=== PATIENT | male | born 2000 | race Caucasian/White ===

== ENCOUNTER 2023-05-04 11:32 | Emergency (ER) | payer BC, SELFPAY ==
[2023-05-04 11:52] VITALS: BP 156/97; PULSE 104; RESP 18; TEMP 37; O2SAT 100
--- NOTE | 2023-05-04 12:33 | ED.URI ---
HPI - URI/Sore Throat General Chief Complaint: Upper Respiratory Infection Stated Complaint: congestion/nausea Time Seen by Provider: 05/04/23 12:24 Source: patient, RN notes reviewed and old records reviewed Mode of arrival: ambulatory Limitations: no limitations History of Present Illness HPI Narrative: 22-year-old male to [facility] With complaint of nausea, vomiting, cough that started yesterday. Patient denies fever, chest pain, shortness of breath. Patient denies allergies Or pertinent medical history. Patient able to tolerate fluids by mouth Related Data Home Medications Medication Instructions Recorded Confirmed No Home Medications 05/04/23 05/04/23 Allergies Allergy/AdvReac Type Severity Reaction Status Date / Time No Known Allergies Allergy Unverified 04/01/14 19:46 Review of Systems Review of Systems: All systems reviewed & are unremarkable except as noted in HPI and below Constitutional: Constitutional: Reports as per HPI, Denies body ache(s) and Denies chills Eyes: Eyes: Reports no additional eye complaints ENT: Reports as per HPI and Denies sore throat Cardiovascular: Cardiovascular: Reports no additional cardiovascular complaints, Denies chest pain and Denies dyspnea Respiratory: Respiratory: Reports no additional respiratory complaints, Reports cough and Denies dyspnea Gastrointestinal: Gastrointestinal: Denies abdominal pain, Denies diarrhea, Reports nausea and Reports vomiting Musculoskeletal: Musculoskeletal: Reports no additional musculoskeletal complaints Neurologic: Reports system reviewed and no additional complaints, except as documented Psychiatric: Psychiatric: Reports no additional psychiatric complaints PMFSH Comments At the time of my signature, I reviewed and agree with the nursing past medical, surgical, social, and family history. There is no relevant family history pertinent to the patient complaint. Exam Const: General: cooperative, healthy appearing, comfortable, no acute distress, alert and well nourished Nutritional Appearance: well nourished Orientation/consciousness: patient oriented x3 Limitations: no limitations HENMT: Head: normal to inspection Ears: external ears normal Face/Nose/Sinus: Normal external nose present, Normal nares present, normal facial exam, No erythema and No edema Face and sinus: normal facial exam, no erythema and no edema Mouth: Yes Normal oral and palatal mucosa present Throat: posterior oropharynx abnormal erythema; no edema and postnasal drainage Eyes: General: appearance normal, both eyes and all related structures Neck: Neck: normal visual inspection, full ROM and no meningeal signs Lymphatic: no lymphadenopathy noted and no lymphedema noted Chest: Chest palpation & inspection: normal inspection of the chest Resp: Effort & Inspection: normal respiratory effort and able to speak in complete sentences Auscultation: clear to auscultation bilaterally Cardio: Jugular venous distension: no JVD Rate: regular rate Rhythm: regular rhythm Back/Spine/Pelvis: Cervical Spine: cervical ROM normal Skin: General skin exam: normal color, no rashes or lesions noted and turgor normal Neuro: General: patient oriented x3, gait normal, moves all extremities and no meningeal signs Speech: normal speech Gait exam (Neuro): Normal gait present Extrem: General: normal to inspection, full ROM and capillary refill normal Psych: Appearance: grossly normal and well kempt Course Course Emergency Course: Some parts of this dictation were generated by voice recognition software and may contain typographical and/or grammatical inaccuracies. Level of Care: Express Care Visit Vital Signs Vital signs: Vital Signs Temperature 37.0 C 05/04/23 11:52 Pulse Rate 104 H 05/04/23 11:52 Respiratory Rate 18 05/04/23 11:52 Blood Pressure 156/97 H 05/04/23 11:52 Pulse Oximetry 100 05/04/23 11:52 Oxygen Delivery Room Air
== END 2023-05-04 12:35 | disposition home or self-care (01) ==
PROVIDERS: Emergency Provider Nurse Practitioner Family
DX: K52.9 Noninfective gastroenteritis and colitis, unspecified (principal); J06.9 Acute upper respiratory infection, unspecified
CPT/HCPCS: 99202; G0463

== ENCOUNTER 2023-06-08 13:54 | Emergency (ER) | payer BC, SELFPAY ==
--- NOTE | 2023-06-08 14:13 | ED.GENADULT ---
HPI - General Adult General Chief complaint: Nausea/Vomiting/Diarrhea Stated complaint: nausea/hernia Time Seen by Provider: 06/08/23 14:13 Source: patient, RN notes reviewed and old records reviewed Mode of arrival: ambulatory Limitations: no limitations History of Present Illness HPI narrative: 22-year-old male to Express Care for complaint nausea and vomiting since yesterday. Patient states recent increase in stress at home. Patient endorses history of hiatal hernia. patient denies pertinent medical history , allergies, fever, abdominal pain, diarrhea. Patient able to tolerate fluids by mouth. No acute distress in exam room Related Data Home Medications Medication Instructions Recorded Confirmed No Home Medications 05/04/23 06/08/23 Allergies Allergy/AdvReac Type Severity Reaction Status Date / Time No Known Allergies Allergy Verified 06/08/23 14:11 Review of Systems Review of Systems: All systems reviewed & are unremarkable except as noted in HPI and below Constitutional: Constitutional: Reports as per HPI, Denies body ache(s), Denies chills and Denies fever(s) Eyes: Eyes: Reports no additional eye complaints ENT: Reports system reviewed and no additional complaints, except as documented Cardiovascular: Cardiovascular: Reports no additional cardiovascular complaints, Denies chest pain and Denies dyspnea Respiratory: Respiratory: Reports no additional respiratory complaints, Denies cough and Denies dyspnea Gastrointestinal: Gastrointestinal: Reports nausea and Reports vomiting Musculoskeletal: Musculoskeletal: Reports no additional musculoskeletal complaints Neurologic: Reports system reviewed and no additional complaints, except as documented Psychiatric: Psychiatric: Reports no additional psychiatric complaints PMFSH Comments At the time of my signature, I reviewed and agree with the nursing past medical, surgical, social, and family history. There is no relevant family history pertinent to the patient complaint. Exam Const: General: cooperative, healthy appearing, comfortable, no acute distress, alert and well nourished Nutritional Appearance: well nourished Orientation/consciousness: patient oriented x3 Limitations: no limitations HENMT: Head: normal to inspection Ears: external ears normal Face/Nose/Sinus: Normal external nose present, Normal nares present, normal facial exam, No erythema and No edema Face and sinus: normal facial exam, no erythema and no edema Mouth: Yes Normal oral and palatal mucosa present Eyes: General: appearance normal, both eyes and all related structures Neck: Neck: normal visual inspection, full ROM and no meningeal signs Lymphatic: no lymphadenopathy noted and no lymphedema noted Chest: Chest palpation & inspection: normal inspection of the chest Resp: Effort & Inspection: normal respiratory effort and able to speak in complete sentences Auscultation: clear to auscultation bilaterally Cardio: Jugular venous distension: no JVD Rate: regular rate Rhythm: regular rhythm Back/Spine/Pelvis: Cervical Spine: cervical ROM normal Skin: General skin exam: normal color, no rashes or lesions noted and turgor normal Neuro: General: patient oriented x3, gait normal, moves all extremities and no meningeal signs Speech: normal speech Gait exam (Neuro): Normal gait present Extrem: General: normal to inspection, full ROM and capillary refill normal Psych: Appearance: grossly normal and well kempt Course Course Emergency Course: Some parts of this dictation were generated by voice recognition software and may contain typographical and/or grammatical inaccuracies. Level of Care: Express Care Visit Vital Signs Vital signs: Vital Signs Temperature 36.7 C 06/08/23 14:41 Pulse Rate 111 H 06/08/23 14:41 Respiratory Rate 18 06/08/23 14:41 Blood Pressure 140/78 06/08/23 14:41 Pulse Oximetry 99 06/08/23 14:41 Temperature 36.7 C
[2023-06-08 14:41] VITALS: BP 140/78; PULSE 111; RESP 18; TEMP 36.7; O2SAT 99
== END 2023-06-08 14:15 | disposition home or self-care (01) ==
PROVIDERS: Emergency Provider Nurse Practitioner Family
DX: K52.9 Noninfective gastroenteritis and colitis, unspecified (principal)
CPT/HCPCS: 99211; G0463

== ENCOUNTER 2024-02-29 17:05 | Emergency (ER) | payer OTHER, SELFPAY ==
[2024-02-29 17:11] VITALS: BP 124/62; PULSE 87; RESP 20; TEMP 36.7; O2SAT 98
--- NOTE | 2024-02-29 17:36 | ED_ITS ---
HPI - General Adult General Chief complaint: Nausea/Vomiting/Diarrhea Stated complaint: needs work note Time Seen by Provider: 02/29/24 17:30 Source: patient and RN notes reviewed Mode of arrival: ambulatory Limitations: no limitations History of Present Illness HPI narrative: 23-year-old male presents to [facility] with complaints of 2 day history of nausea and dizziness and states that he had to call off work and needs note to be able to go back to work tomorrow.. Patient reports no sore throat or any ear pain denies any vomiting or diarrhea or any known fevers or body aches, Patient reports that son has been ill but no one else in household. Patient reports no headache or any visual disturbances. MD complaint: nausea and dizziness. Onset (ago): day(s) (2) Severity: mild Treatments prior to arrival: none Related Data Home Medications ?Medication ?Instructions ?Recorded ?Confirmed ?Last Taken ?Type No Home Medications 05/04/23 06/08/23 Unknown History Allergies Allergy/AdvReac Type Severity Reaction Status Date / Time No Known Allergies Allergy Verified 02/29/24 17:15 Review of Systems Review of Systems: CONSTITUTIONAL: Denies malaise, chills, sweats, or fever. EYES: Denies visual changes, redness, or discharge. ENT: Reports rhinorrhea, congestion, no sinus pain, no otalgia and no sore throat. CARDIOVASCULAR: Denies chest pain, palpitations, or edema. RESPIRATORY: Reports no cough.? Denies dyspnea. GASTROINTESTINAL: Denies abdominal pain,episodes of nausea, no vomiting, no iarrhea SKIN: Denies rash or itching. MUSCULOSKELETAL: Denies myalgia. NEUROLOGIC: Denies headache.reports episodes of dizziness 2 days in mornings reports no present dizziness All systems reviewed & are unremarkable except as noted in HPI and below PMFSH Past Medical History Medical History ADD (attention deficit disorder) Social History Social History (Updated 03/01/24 @ 13:41 by Franci Nath NP) Smoking status: Never smoker Alcohol intake: current Alcohol use details: social Substance use type: does not use Gender identity (if verbalized by the patient): Male Comments At time of signature, agree with nursing past medical, surgical, social and family history. There is no relevant family history pertinent to the presenting complaint Exam Narrative: GENERAL: Well-appearing, well-nourished, and in no acute distress. HEAD: Normocephalic EYES: PERRLA, conjunctivae clear ENT: Nares clear, turbinates edematous and erythematous, clear discharge. Mucous membranes moist. TM pearly iyer with dull light reflex bilaterally; no tragal tenderness. Oropharynx erythematous without lesions. Tonsils not enlarged and without exudate, no drooling, no hoarseness, no trismus, uvula midline. NECK: Supple. No lymphadenopathy CHEST: Clear to auscultation, breath sounds equal. No wheezing, rhonchi, rales, or stridor. No respiratory distress, speaks in full sentences.no cough noted SAO2 98% on room air HEART: Regular rate and rhythm. No murmur heard. SKIN: Warm, dry, no rash. NEURO: Alert and oriented x3. denies any headache and denies any present dizziness. PSYCH: Normal mood and affect Course Course Emergency Course: Patient is aware of diagnosis, understands and agrees to treatment plan.? Anticipatory guidance given.? Patient agrees to follow-up as directed and is aware of reasons to seek care at the emergency department. Portions of this record may have been created with voice recognition software Level of Care: Express Care Visit Vital Signs Vital signs: Vital Signs Temperature 36.7 C 02/29/24 17:11 Pulse Rate 87 02/29/24 17:11 Respiratory Rate 02/29/24 17:11 Blood Pressure 124/62 02/29/24 17:11 Pulse Oximetry 98 02/29/24 17:11 Oxygen Delivery Room Air 02/29/24 17:11 Temperature 36.7 C 02/29/24 17:11 Pulse Rate 87 02/29/24 17:11 Respiratory Rate 20 02/29/24 17:11 Blood Pressure 124/62 02/29/24 17:11 Pulse Oximetry 98 02/29/24 17:11 Oxygen Delivery Room Air 02/29/24 17:11 Reviewed Medical Decision Making Differential Diagnosis Differential Diagnosis: URI, nausea, dizziness, viral infection, viral syndrome. influenza, COVID Medical Records Medical records reviewed: Yes I reviewed the external patient's medical records. Vital Signs Vital Signs: Vital Signs Temperature 36.7 C 02/29/24 17:11 Pulse Rate 87 02/29/24 17:11 Respiratory Rate 20 02/29/24 17:11 Blood Pressure 124/62 02/29/24 17:11 Pulse Oximetry 98 02/29/24 17:11 Oxygen Delivery Room Air 02/29/24 17:11 Temperature 36.7 C 02/29/24 17:11 Pulse Rate 87 02/29/24 17:11 Respiratory Rate 20 02/29/24 17:11 Blood Pressure 124/62 02/29/24 17:11 Pulse Oximetry 98 02/29/24 17:11 Oxygen Delivery Room Air 02/29/24 17:11 reviewed Lab Data Lab results reviewed: Yes I reviewed the patient's lab results. Lab results narrative: Influenza A negative, Influenza B negative, COVID negative Labs: Lab Results 02/29/24 Range/Units 17:35 POC Influenza A Ag Negative (Negative) POC Influenza B Ag Negative (Negative) POC SARS CoV-2 Ag Negative (Negative) reviewed Critical Care Time Critical Care Time Critical Care Time: No Discharge Plan Discharge Clinical Impression: Viral syndrome Patient Disposition: Home, Self-Care Condition: Stable Instructions: Viral Syndrome (ED) Additional Instructions: Increase fluids especially juices and water [id number] cough and cold medicine of your choice for your symptoms Zyrtec Claritin or Kaylene daily Maintain light diet avoid spicy foods caffeine Tylenol or ibuprofen for any fever pain heat to the face 20-30 minutes 4-6 times a day for pain Salt water gargles, throat lozenges or throat sprays as desired If your symptoms persist, change or worsen significantly before you can contact your personal physician then please, without delay, go to the emergency department for further evaluation. Follow-up with PCP in 7-10 days or sooner if needed Patient Language: [place] Irish Prescriptions: No Action No Home Medications Follow-up/Referrals: PHYSICIAN,LEARNING TECHNOLOGIST [Primary Care Provider] - Stand Alone Forms: Work/School Release IP Time of Disposition: 17:54 Quality Alexa Coma Scale Eyes: Open Verbal: Oriented and Alert Motor: Follows Commands Alexa Coma Total Score: 15
[2024-02-29 17:54] LABS: EDCOVIDSCREEN Negative (Negative); EDINFLUASCREEN Negative (Negative); EDINFLUBSCREEN Negative (Negative)
--- OUTSIDE RECORDS SUMMARY | 2024-03-02 20:09 | XMS_ITS | Referral Summary ---
Author Organization [facility] [place] [address] Address [address] [place] [address] Care Team Providers Care Automotive Service Cashier Name Role Phone Tabatha Ballesteros MD Primary Care Provider [phone] Allergies No known active allergies Medications pediatric multivitamin tablet,chewableIndi cations:Vitamin Deficiency Prevention Take 1 tablet by mouth. 0 Active ondansetron ODT (ZOFRAN-ODT) 4 mg disintegrating tablet Dissolve 1 tablet oral every 4 hours as needed for nausea or vomiting. 15 tablet 8 Active Active Problems No known active problems Social History Tobacco Use Types Packs/Day Years Used Date Smoking Tobacco: Never Smokeless Tobacco: Never Alcohol Use Standard Drinks/Week Comments No 0 (1 standard drink = 0.6 oz pur e alcohol) Personal Safety Answer Date Recorded Getting School Help Needed Not on file 04/23 Sex and Gender Information Value Date Recorded Sex Assigned at Not on file Legal Sex Male 7:37 PM [employer] Gender Identity Not on file Sexual Orientation Not on file Last Filed Vital Signs Vital Sign Reading Time Taken Comments Blood Pressure 149/66 04/11/2017 12:15 AM [employer] Pulse 84 04/10/2017 10:46 PM [employer]GR[employer] Temperature 36.9 ??C (98.4 ??F) 04/10/2017 10:[address] Respiratory Rate 18 04/10/2017 10:46 PM [employer]GR[employer] Oxygen Saturation 97% 04/11/2017 12:15 AM HEAD OF GEOGRAPHY Inhaled Oxygen Concentration - - Weight 86.2 kg (190 lb) 04/10/2017 10:44 PM [employer] OF GEOGRAP[employer] Height 182.9 cm (6') 04/10/2017 10:44 PM [employer]OGRAP[employer] Body Mass Index 25.77 04/10/2017 10:44 PM HEAD OF GEOGRAPHY Plan of Treatment Not on file Insurance [facility] [employer] HMO/PPO Address: [place] [address] Care Teams Automotive Service Cashier Relationship Specialty Start Date End Date Tabatha Ballesteros MD PCP - General Pediatrics 03/02/17
--- OUTSIDE RECORDS SUMMARY | 2024-03-02 20:09 | XMS_ITS | Patient Health Summary ---
Author Organization [facility] Address [address] [place] [address] Care Team Providers Care Mobile Phone Salesperson Name Role Phone Tabatha Ballesteros MD Primary Care Provider [phone] Note from [facility],non-owned Affiliates and Associated Physician Practices is amultiple site organization consisting of ambulatory clinics and hospital sitesin [place], [place], [place] and [place]. This disclosure is being madepursuant to the Care Everywhere program and may not contain all information available regarding this patient. Last updated 17.[facility] Allergies No known active allergies Medications * Be aware that medications may not be up to date on this document. Alwaysverify current medications with the patient. * Pediatric Wvciheaq-Stghzkhx-B (KIDS GUMMY BEAR VITAMINS PO)(Started 09/27/2009) Take 1 Tab by mouth daily. Social History Tobacco Use Types Packs/Day Years Used Date Smoking Tobacco: Never Alcohol Use Standard Drinks/Week Comments No 0 (1 standard drink = 0.6 oz pur e alcohol) Sex and Gender Information Value Date Recorded Sex Assigned at Not on file Gender Identity Not on file Sexual Orientation Not on file Last Filed Vital Signs Vital Sign Reading Time Taken Comments Blood Pressure 120/68 09/30/2009 9:36 AM CDT Pulse 80 09/30/2009 9:36 AM CDT Temperature 36.6 ??C (97.8 ??F) 09/30/2009 9:36 AM CD T Respiratory Rate 22 09/30/2009 9:36 AM CDT Oxygen Saturation 100% 09/30/2009 8:28 AM CDT Inhaled Oxygen Concentration - - Weight 34.1 kg (75 lb 1.3 oz) 09/30/2009 6:10 AM CDT Height 144 cm (4' 8.69 ) 09/30/2009 6:10 AM CDT Body Mass Index 16.42 09/30/2009 6:10 AM CDT Care Teams Mobile Phone Salesperson Relationship Specialty Start Date End Date Tabatha Ballesteros MD [address] [place] [address] [address] PCP - General 09/11/09
--- OUTSIDE RECORDS SUMMARY | 2024-03-02 20:09 | XMS_ITS | Data Portability ---
Author Organization [place] [facility] [employer], Main Office Address [address] [place] [address] Assessment No assessment recorded. Plan of Treatment Reminders Order Date Submit Date Provider Last Modified By Organization Details Last Modified Time Details Appointments None recorded. Lab lipid panel, serum [address] (Lab), [address] [place], [address], 3 09:10:40 CMP, serum or plasma [address] (Lab), [address] [place], [address], 3 09:10:40 CK (creatine kinase), total, serum [address] (Lab), [address] [place], [address], 3 09:10:40 TSH, serum or plasma [address] (Lab), [address] [place], [address], 3 09:10:41 vitamin D3, 25-hydroxy , serum [address] (Lab), [address] [place], [address], 3 09:10:40 vitamin B12 + folate, serum or blood 2022 023 [facility] (Lab), [address] [place], [address], 3 09:10:40 magnesium, serum or plasma [address] (Lab), [address] [place], [address], 3 09:10:40 glycohemog lobin, total, blood [address] (Lab), [address] [place], [address], 09:10:41 Referral None recorded. Procedures None recorded. Surgeries None recorded. Imaging None recorded. Medication Orders docusate sodium 100 mg capsule 2022 023 [place] [facility] [employer] #[id number], [address], [place], [place], [id number], 3 16:24:32 magnesium citrate oral solution 2022 023 [place] [email or web address] #[id number], [address], [place], [place], [id number], 3 16:24:31 Patient TargetsNo targets recorded. Patient InstructionsNo instructions recorded. Reason for Referral None Reported. Problems Name Problem SNOMED Code Status Onset Date Resolution Date Notes Provider Name and Address Organization Details Recorded Time Constipation 02552958 Active 2022 [facility] [address], [place], [address], [facility] 3 16:19:56 Hyperlipidemia screening Active 2022 LC [facility] [email or web address], [place], [address], [facility] 3 16:27:15 Family history of diabetes mellitus 698088395 Active 2022 LC Oates [address], [place], [address], [facility] [employer] [facility] 3 16:27:33 At increased risk of nutritional deficit 813874245 Active 2022 LC O[facility] [address], [place], [address], [facility] [employer] [facility] 3 16:28:03 Problem Notes None recorded. Procedures Surgical History Date Name Laterality Status Provider Name and Address Organization Details Recorded Time Circumcision completed Deepika Banks MA [facility] [employer] [facility] 11/02/2022 16:12:34 removal of hoda completed Deepika Banks MA [facility] [employer] [facility] 11/02/2022 16:13:11 Imaging Results None recorded. Procedure Notes None recorded. Medical Equipment None Reported. Allergies No known drug allergies Medications Name Sig Start Date Stop Date Status Note LastModified by Organization Details LastModified Time pantoprazole 40 mg tablet,delay ed release TAKE 1 TABLET BY MOUTH ONCE DAILY 11/02 completed Not Available Not Available Not Available docusate sodium 100 mg capsule Take 1 capsule twice a day by oral route for 30 days. 2022 active Not Available Not Available Not Avai lable magnesium citrate oral solution Take 300 mL every day by oral route for 1 day. 2022 active Not Available Not Available Not Avai lable Vitals Date Recorded Body weight Body mass index (BMI) Body height Body temperature Heart rate Oxygen saturation Oxygen saturation in Arterial blood by Pulse oximetry Systolic blood pressure Diastolic blood pressure Provider Name and Address Organization Details Last Updated DateTime 3 726971. 91 g 32.8 kg/m2 180.34 cm 98.3 [degF] 84 /min 98 % 98 % 144 mm[Hg] 82 mm[Hg] Deepika Banks MA [facility] [employer] [facility] 16:09:28 Social History Question Answer Notes LastModified by Organizat ion Details LastModified Time Tobacco Smoking Status Never Smoker Deepika Banks MA null, [facility] [employer] [facility] 11/02/2022 16:12:15 What Is Your Level Of Alcohol Consumption? Occasional [email or web address] Information not available 11/02/2022 What Is Your Level Of Caffeine Consumption? Occasional [email or web address] Information not available 11/02/2022 Do You Use Your Seat Belt Or Car Seat Routinely? Yes [email or web address] Information not available 11/02/2022 Do You Participate In Social Media? Yes [email or web address] Information not available 11/02/2022 Do You Feel Stressed (tense, Restless, Nervous, Or Anxious, Or Unable To Sleep At Night)? [id number] [email or web address] Information not available 11/02/2022 Do You Use Any Illicit Or Recreational Drugs? Yes [email or web address] Information not available 11/02/2022 Have You Used IV Drugs? No Information not available 11/02/2022 Sex: Unknown Functional Status None recorded. Mental Status None recorded. Family History Relationship Description Onset Age of this Age Resolved Age Notes LastModified by Organization Details LastModified Time Father No current problems or disability [email or web address] Not available 16:10:25 Mother No current problems or disability [email or web address] Not available 16:10:25 Medical History No medical history recorded. Past Encounters Encounter ID Performer Location Encounter Start Date Encounter Closed Date Diagnosis/Indication Diagnosis SNOMED-CT Code Diagnosis ICD10 Code Diagnosis Note [id number] [facility] Adam gonzalez [address] [facility] [place] [address] 11/02/2022 15:57:25 11/02/2022 16:36:12 Constipation 28494442 K59.00 Family his tory of diabetes mellitus 154743129 Z83.3 Hyperlipid emia screening 878915461 Z13.220 [facility] ed risk of nutritional deficit 101941568 Z91.89 Health Concerns Section Related Observation LastModified by Organization Detai ls LastModified Time None Recorded Concern Status LastModified by Organization Details LastModified Time None Recorded Advance Directives Directive None Recorded Payers Encounter Date Sequence Insurance Name Policy Number Policy Stevens Covered Member ID Stevens Member ID Guarantor Name 11/02/2022 1 [facility] [id number] Stan Dorman [id number] Stan Dorman Notes Date Note Type Note Provider Name and Address Organization Details Recorded Time 11/02/2022 text/html 22 y/o with a hiatal hernia , wants to eat healthier. He did finally have a small BM today [facility] [address] [facility] [address], [place], [address], [place] [facility] 11/03/2022 12:29:15
--- OUTSIDE RECORDS SUMMARY | 2024-03-02 20:09 | XMS_ITS | Clinical Summary ---
Author Organization [facility] [address] [employer] [address] Address [address] [place] [address] Care Team Providers Care Electrician Shop Name Role Phone Tabatha Ballesteros MD Primary Care Provider [phone] Allergies No known active allergies Medications pediatric multivitamin tablet,chewableIndi cations:Vitamin Deficiency Prevention Take 1 tablet by mouth. 0 Active ondansetron ODT (ZOFRAN-ODT) 4 mg disintegrating tablet Dissolve 1 tablet oral every 4 hours as needed for nausea or vomiting. 15 tablet 8 Active Active Problems No known active problems Medical History Medical History Date Comments ADHD (attention deficit hyperactivity disorder) Social History Tobacco Use Types Packs/Day Years Used Date Smoking Tobacco: Never Smokeless Tobacco: Never Alcohol Use Standard Drinks/Week Comments No 0 (1 standard drink = 0.6 oz pur e alcohol) Personal Safety Answer Date Recorded Getting School Help Needed Not on file 04/23 Sex and Gender Information Value Date Recorded Sex Assigned at Not on file Legal Sex Male 7:37 PM [employer] Gender Identity Not on file Sexual Orientation Not on file Obstetrics History Last Filed Vital Signs Vital Sign Reading Time Taken Comments Blood Pressure 149/66 04/11/2017 12:15 AM [employer] Pulse 84 04/10/2017 10:46 PM [employer] Temperature 36.9 ??C (98.4 ??F) 04/10/2017 10:[address] Respiratory Rate 18 04/10/2017 10:46 PM [employer] Oxygen Saturation 97% 04/11/2017 12:15 AM [employer] Inhaled Oxygen Concentration - - Weight 86.2 kg (190 lb) 04/10/2017 10:44 PM [employer] Height 182.9 cm (6') 04/10/2017 10:44 PM [employer] Body Mass Index 25.77 04/10/2017 10:44 PM [employer] Plan of Treatment Not on file Insurance [facility] CHOICE PLUS [address] [place] [id number] Care Teams Electrician Shop Relationship Specialty Start Date End Date Tabatha Ballesteros MD PCP - General Pediatrics 03/02/17
--- OUTSIDE RECORDS SUMMARY | 2024-03-02 20:09 | XMS_ITS | Referral Summary ---
Author Organization [facility] Address [address] [place] [address] Care Team Providers Care Traffic Chief Name Role Phone Tabatha Ballesteros MD Primary Care Provider [phone] Source Comments [facility],non-owned Affiliates and Associated Physician Practices is amultiple site organization consisting of ambulatory clinics and hospital sitesin [place], [place], [place] and [place]. This disclosure is being madepursuant to the Care Everywhere program and may not contain all information available regarding this patient. Last updated 17.[facility] Allergies No known active allergies Medications * Be aware that medications may not be up to date on this document. Alwaysverify current medications with the patient. Medication Sig Dispensed Refills Start Date End Date Status Pediatric Axnmtcew-Ubpgnpab-H (KIDS GUMMY BEAR VITAMINS PO) Take 1 Tab by mouth daily. 09/27/2009 Active Social History Tobacco Use Types Packs/Day Years [...] Mass Index 16.42 09/30/2009 6:10 AM CDT Plan of Treatment Not on file Care Teams Traffic Chief Relationship Specialty Start Date End Date Tabatha Ballesteros MD [address] [place] [address] Dr [address] [place] [address] PCP - General 09/11/09
--- OUTSIDE RECORDS SUMMARY | 2024-03-02 20:09 | XMS_ITS | Clinical Summary ---
Author Organization [facility] [email or web address] Address [address] [place] [address] Care Team Providers Care Optometric Technician Name Role Phone Tabatha Ballesteros MD Primary Care Provider Source Comments [facility] [email or web address],non-owned Affiliates and Associated Physician Practices is amultiple site organization consisting of ambulatory clinics and hospital sitesin [place], [place], [place] and [place]. This disclosure is being madepursuant to the Care Everywhere program and may not contain all information available regarding this patient. Last updated 17.[facility] [email or web address] Allergies No known active allergies Medications * Be aware that medications may not be up to date on this document. Alwaysverify current medications with the patient. Medication Sig Dispensed Refills Start Date End Date Status Pediatric Ileaspaq-Jdndvwqo-S (KIDS GUMMY BEAR VITAMINS PO) Take 1 Tab by mouth daily. 09/27/2009 Active Family History Medical History Relation Name Comments Anesthesia Reaction Mother overhea gerardo Relation Name Status Comments Mother Social History Tobacco Use Types Packs/Day Years [...] 09/30/2009 6:10 AM CDT Plan of Treatment Health Maintenance Due Date Last Done Comments HIV SCREENING 2013 HPV VACCINE (1 - Male 3-dose series) 2013 HEPATITIS C SCREENING 07/29/2016 DTAP/TDAP/TD VACCINES (1 - Tdap) 2017 HEPATITIS B VACCINE (1 of 3 - 19+ 3-dose series) 2017 COVID-19 VACCINE (1 - 2023-2 5 season) 2023 INFLUENZA VACCINE (#1) 2023 DEPRESSION SCREENING 02/09/2024 ZOSTER VACCINE (1 of 2) 2048 HIB VACCINE Aged Out No longer eligi ble based on patient's age to complete this topic MENINGOCOCCAL (Group B) VACCINE Aged Out No longer eligible based on patient's age to complete this topic MENINGOCOCCAL VACCINE Aged Out No caterina cash eligible based on patient's age to complete this topic PNEUMOCOCCAL VACCINE Aged Out No long er eligible based on patient's age to complete this topic Care Teams Optometric Technician Relationship Specialty Start Date End Date Tabahta Ballesteros MD [address] [place] [address] Dr [address]vey [address] [place] [phone] PCP - General 09/11/09
== END 2024-02-29 18:03 | disposition home or self-care (01) ==
PROVIDERS: Emergency Provider Registered Nurse
DX: B34.9 Viral infection, unspecified (principal); Z20.822 Contact with and (suspected) exposure to COVID-19
CPT/HCPCS: 87426; 87804; 99212; G0463